=== PATIENT | female | born 1965 | race African-American/Black ===

== ENCOUNTER 2021-04-24 15:59 | Emergency (ER) | payer MEDICAID ==
[~2021-04-24] VITALS: Ht 167.6 cm; Wt 65.0 kg
[2021-04-24] MEDS ORDERED: ALBUTEROL (0.083%) 2.5MG/3ML NEB HHN STA (16:01)
[2021-04-24] MEDS ORDERED: IPRATROPIUM BROMIDE (0.02%) 0.5MG/2.5ML NEB HHN STA (16:01)
[2021-04-24] MEDS ORDERED: METHYLPREDNISOLONE SOD SUCC 125 MG/2 ML VIAL IM STA (16:01)
[2021-04-24] MEDS ORDERED: SODIUM CHLORIDE 0.9% 1,000 ML IV ONE (16:30)
[2021-04-24] MEDS ORDERED: MAGNESIUM 2 G PREMIX 50 ML IV ONE (16:30)
[2021-04-24 17:03] LABS: BASOPHILS % 0.4 % (0.0-2.0); EOSINOPHILS % 7.2 % (0.0-5.0); HEMATOCRIT. 47.2 % (36.0-48.0); HEMOGLOBIN. 15.6 g/dL (12.0-16.0); LYMPHOCYTES % 16.9 % (20.0-50.0); MEAN CORPUSCULAR HEMOGLOBIN 29.7 pg (28.0-32.0); MEAN CORPUSCULAR VOLUME 89.8 fL (81.0-99.0); MEAN PLATELET VOLUME 10.7 fl (7.4-10.4); MONOCYTES % 8.1 % (2.0-8.0); NEUTROPHILS % 67.4 % (40.0-76.0); PLATELET 223 x1000/uL (130-400); RED BLOOD CELL COUNT 5.25 mill/uL (4.2-5.4); RED CELL DISTRIBUTION WIDTH 13.1 % (11.6-14.6)
[2021-04-24 17:20] LABS: CHLORIDE 106 mEq/L (98-107)
[2021-04-24] MEDS ORDERED: DOXYCYCLINE HYCLATE 100MG CAPSULE PO ONE (18:30)
[2021-04-24] MEDS ORDERED: CEFTRIAXONE 1 G PREMIX 50 ML IV ONE (18:30)
[2021-04-24] MEDS ORDERED: DOXY100C5 MT (19:38)
[2021-04-24] MEDS ORDERED: ALBU6.7H9 INH (19:38)
[2021-04-24] MEDS ORDERED: INHA1SPA3 INH (19:38)
[2021-04-24] MEDS ORDERED: MED4 MT (19:38)
[2021-04-24 20:11] VITALS: BP 117/60
== END 2021-04-24 20:12 | disposition home or self-care (01) ==
LOC: ER 15:59
DX: J44.9 Chronic obstructive pulmonary disease, unspecified (principal); R06.02 Shortness of breath; R05.9 Cough, unspecified; Z87.891 Personal history of nicotine dependence; Z79.899 Other long term (current) drug therapy
CPT/HCPCS: 36415; 71045; 80053; 83880; 84484; 85025; 93005; 96365; 96367; 96372; 99285; J0696; J2930; J3475; J7030

== ENCOUNTER 2021-05-07 17:46 | Emergency (ER) | payer MEDICAID ==
[~2021-05-07] VITALS: Ht 167.6 cm; Wt 66.0 kg
[~2021-05-07 17:46] MED LIST: ALBU6.7H9 INH; DOXY100C5 MT; INHA1SPA3 INH; MED4 MT
[2021-05-07 17:47] VITALS: BP 118/66
[2021-05-07] MEDS ORDERED: IPRATROPIUM BROMIDE (0.02%) 0.5MG/2.5ML NEB HHN STA ×2 (17:47→18:14)
[2021-05-07] MEDS ORDERED: METHYLPREDNISOLONE SOD SUCC 125 MG/2 ML VIAL IV STA (17:47)
[2021-05-07] MEDS ORDERED: ALBUTEROL (0.083%) 2.5MG/3ML NEB HHN STA ×2 (17:47→18:14)
[2021-05-07] MEDS ORDERED: PREDNISONE 20MG TABLET PO STA (18:14)
[2021-05-07] MEDS ORDERED: P50 PO (19:52)
[2021-05-07] MEDS ORDERED: ALBU6.7H9 INH (19:52)
== END 2021-05-07 20:29 | disposition home or self-care (01) ==
LOC: ER 17:46
DX: J44.1 Chronic obstructive pulmonary disease with (acute) exacerbation (principal); Z87.891 Personal history of nicotine dependence; Z79.51 Long term (current) use of inhaled steroids
CPT/HCPCS: 71045; 94644; 99285; J7512; Z7610